=== PATIENT | male | born 1965 | race Hispanic/Latino ===

== ENCOUNTER → 2025-06-06 | Outpatient (CLI) | payer BC ==
--- NOTE | 2025-06-08 11:33 | HMCIMG ---
EXAM: MR Cervical Spine Without Intravenous Contrast. CLINICAL HISTORY: Spinal canal stenosis. TECHNIQUE: Magnetic resonance images of the cervical spine in multiple planes. CONTRAST: None. COMPARISON: None. FINDINGS: The imaged posterior fossa is unremarkable. The craniocervical junction is intact. No acute fracture. Loss of cervical lordosis. Normal vertebral body height and marrow signal intensity. Multilevel disc desiccation and mild degenerative reduction in disc space at C5-C6 and C6-C7 No abnormal signal involves the cervical cord. No extra-axial masses. The surrounding soft tissues are unremarkable. Level by level, disease is present as follows: C1-C2: No osteoarthritis. C2-C3: Mild disc desiccation with minimal 2 mm posterior central disc bulge. No neural foraminal, lateral recess, or spinal canal stenosis. C3-C4: Mild disc desiccation with 3 mm posterior central disc protrusion with a small annular tear. Mild bilateral C4 uncinate process hypertrophy and facet arthropathy are left more than right. Moderate narrowing of the left neural foramina. Abutment of the left exiting C4 nerve root. C4-C5: Mild disc desiccation. 3 mm posterior central disc bulge and left facet arthropathy. Mild narrowing of the left neural foramina. Abutment of the left exiting C5 nerve root. No neural foraminal, lateral recess, or spinal canal stenosis. C5-C6: Mild disc desiccation. Broad-based circumferential 3.5 mm disc bulge and bilateral C6 uncinate process hypertrophy, left more than the right. Moderate narrowing of the bilateral neural foramina and abutment of the bilateral exiting C6 nerve roots left more than right. Mild spinal canal stenosis. C6-C7: Mild disc desiccation and degenerative reduction in disc space. Broad-based circumferential 4 mm disc osteophyte complex bulge. Bilateral C7 uncinate process hypertrophy and facet arthropathy. Moderate narrowing of the bilateral neural foramina. Moderate spinal canal stenosis. No increased signal intensity within the spinal cord to suggest myelomalacia. C7-T1: No disc bulge or herniation. No neural foraminal, lateral recess, or spinal canal stenosis. Fluid signal intensity in the inferior aspect of the right mastoid air cells is suggestive of right mastoiditis. IMPRESSION: No evidence of acute fracture or subluxation. Normal vertebral body height and marrow signal intensity. Loss of cervical lordosis with multilevel disc desiccation and disc bulges, most prominent at the C6-C7 level. Moderate spinal canal stenosis. No evidence of myelomalacia. Moderate degenerative changes in the cervical spine as described above. /Roslyn
== END | disposition home or self-care (01) ==
LOC: RAH 14:33
PROVIDERS: ATTEND Family Medicine
DX: M47.22 Other spondylosis with radiculopathy, cervical region (principal); M50.123 Cervical disc disorder at C6-C7 level with radiculopathy; M50.11 Cervical disc disorder with radiculopathy, high cervical region; M48.02 Spinal stenosis, cervical region
CPT/HCPCS: 72141